=== PATIENT | male | born 1980 | race Caucasian/White ===

== ENCOUNTER 2022-12-08 09:50 | Inpatient (IN) ==
[2022-12-08 10:23] LABS: Basophils # (auto) 0.04 K/uL (0.00-0.20); Basophils % (auto) 0.3 %; Eosinophils # (auto) 0.22 K/uL (0.00-0.50); Eosinophils % (auto) 1.9 %; Hematocrit (blood only) 46.7 % (42.0-52.0); Hemoglobin 16.8 g/dl (14.0-18.0); Immature Granulocytes # (auto) 0.05 K/uL (0.01-0.20); Immature Granulocytes % (auto) 0.4 %; Lymphocytes # (auto) 2.42 K/uL (1.20-3.40); Lymphocytes % (auto) 20.4 %; Mean Corpuscular Hemoglobin 32.1 pg (25.0-34.0); Mean Corpuscular Volume 89.1 fL (80.0-100.0); Mean Platelet Volume 10.6 fL (9.4-12.4); Monocytes # (auto) 0.59 K/uL (0.11-0.59); Neutrophils # (auto) 8.52 K/uL (1.40-6.50); Platelet Count 299 K/uL (130-400); RDW Coefficient of Variation 12.5 % (11.5-14.5); RDW Standard Deviation 41.1 fL (36.4-46.3); Red Blood Count 5.24 M/uL (4.70-6.10); White Blood Count 11.84 K/ul (4.8-10.8)
[2022-12-08 10:39] LABS: Albumin Globulin Ratio 1.5 (0.9-2); Albumin Level 4.7 gm/dl (3.4-5.0); BUN Creatinine Ratio 17.1 (10-20); Bilirubin,Total 0.7 mg/dl (0.2-1.0); Calcium 9.3 mg/dl (8.6-10.3); Creatinine Clr Calc Pharmacy 150.2 ml/min; Est GFR (African American) 128.2 ml/min; Est GFR (Non-African American) 110.6 ml/min; Globulin 3.1 gm/dl (2.5-4.0); Total Protein 7.8 gm/dl (6.0-8.3)
[2022-12-08] MEDS ORDERED: FAMOTIDINE 20MG IV PUSH 20 MG/5 ML SYR IV STA (10:48)
[2022-12-08] MEDS ORDERED: ONDANSETRON INJ 2 MG/ML 2 ML VIAL IV STA (10:48)
[2022-12-08] MEDS ORDERED: fentaNYL citrate PF 100 MCG/2 ML VIAL IV STA ×2 (10:48→13:45)
--- NOTE | 2022-12-08 10:52 | Emergency Department Note ---
History of Present Illness General Chief complaint: Abdominal Pain Stated complaint: ABDOMINAL PAIN, Time Seen by Provider: 12/08/22 09:54 History of Present Illness Maximum Pain Intensity: 9 42-year-old male presents emergency department with an onset of midepigastric abdominal pain and nausea that started a few days ago. Patient's had a prior history approximately a year and a half ago and had pancreatitis at that time. Patient also was told that in the past he had gallstones. Patient states the pain is moderate located in the midepigastrium there is no radiation of the pain. There are no other mitigating or alleviating factors. Patient denies any fever. Home Medications Medication Instructions Recorded Confirmed Type acetaminophen 300 mg-codeine 30 mg 1 tab PO BID PRN Pain 12/08/22 12/08/22 Histo ry tablet fluticasone 100 mcg-salmeterol 50 1 inh inhalation BID 12/08/22 12/08/22 History mcg/dose blistr powdr for inhalation (Wixela Inhub) Allergies Allergy/AdvReac Type Severity Reaction Status Date / Time No Known Allergies Allergy Unverified 12/08/22 11:41 Past Med/Surg History Social History Smoking Status: Former smoker Feels Safe at Home: Yes Immunizations: Past medical history includes pancreatitis Review of Systems A total of 10 systems reviewed and were otherwise negative Gastrointestinal: + abdominal pain and + nausea Physical Exam Vital Signs Vital Signs - 24 hr 12/08/22 09:53 12/08/22 11:41 Temperature 36.4 C L Temperature Source Temporal Artery Scan Pulse Rate 86 71 Respiratory Rate 20 Respiratory Effort / Characteristics Non-Labored Spontaneous Respiratory Depth Normal Blood Pressure 140/92 Blood Pressure Mean 108 Pulse Oximetry 97 Oxygen Delivery Method Room Air Sepsis Recent Fever Within 48 Hours No Sepsis New/Unexplained Change in Mental Status No Sepsis Action Taken by Nursing No Action Required GENERAL: Patient is awake alert in no acute distress patient is resting comfortably and showing no signs of anxiety EYES: The conjunctivae are clear. The pupils are round and reactive. EARS, NOSE, MOUTH AND THROAT: The nose is without any evidence of any deformity. Mucous membranes are moist. Tongue is midline. NECK: The neck is nontender and supple. RESPIRATORY: Normal respiratory effort is noted there is no evidence of wheezing rhonchi or rales CARDIOVASCULAR: Regular rate and rhythm noted there no murmurs rubs or gallops normal S1 normal S2. GASTROINTESTINAL: The abdomen is soft. Abdomen is tender in the midepigastrium BACK: No midline tenderness or or step-off noted range of motion in flexion extension as well as rotation no signs of muscle spasm noted MUSCULOSKELETAL/EXTREMITIES: There is no evidence of gross deformity full range of motion is noted in the hips and shoulders. SKIN: There is no obvious evidence of any rash. There are no petechiae, pallor or cyanosis noted. NEUROLOGIC: Patient is awake alert and oriented x3 strength is symmetric Course Reevaluation(s) Reevaluation #1: Patient continues to complain of pain in the midepigastrium despite IV fluids Zofran and fentanyl Time: 14:01 Consultations Consultation #1: [facility] Time: 14: Administered Medications Discontinued Medications Fentanyl Citrate (Fentanyl Citrate Pf 100 Mcg/2 Ml Vial) 50 mcg IV NOW STA Stop: 12/08/22 10:49 Last Admin: 12/08/22 11:35 Dose: 50 mcg Documented By: WILTON Famotidine (Pepcid 20mg Iv Push) 20 mg in 5 mls @ 2.5 mls/min IV NOW STA Stop: 12/08/22 10:49 Last Admin: 12/08/22 11:35 Dose: 2.5 mls/min Documented By: WILTON Ioversol (Optiray 320 100ml) 90 ml IV ONCE ONE Stop: 12/08/22 12:55 Last Admin: 12/08/22 12:54 Dose: 90 ml Documented By: DAPHNE Ondansetron HCl (Ondansetron Inj 2 Mg/Ml 2 Ml Vial) 4 mg IV NOW STA Stop: 12/08/22 10:49 Last Admin: 12/08/22 11:35 Dose: 4 mg Documented By: WILTON Medical Decision Making Medical Records Attestation: I reviewed the patient's medical records. Home Medications Current Medication List: was personally reviewed by me Laboratory Data Attestation: I reviewed the patient's lab results. Labs interpreted by me elevated lipase consistent with pancreatitis 12/08/22 09:58 12/08/22 09:58 Lab Results 12/08/22 12/08/22 12/08/22 Range/Units 09:58 09:58 09:58 WBC 11.84 H (4.8-10.8) K/ul RBC 5.24 (4.70-6.10) M/uL Hgb 16.8 (14.0-18.0) g/dl Hct 46.7 (42.0-52.0) % MCV 89.1 (80.0-100.0) fL MCH 32.1 (25.0-34.0) pg MCHC 36.0 (32.0-36.0) g/dL RDW Std Deviation 41.1 (36.4-46.3) fL RDW Coeff of Chuck 12.5 (11.5-14.5) % Plt Count 299 (130-400) K/uL MPV 10.6 (9.4-12.4) fL Immature Gran % (Auto) 0.4 % Neut % (Auto) 72.0 % Lymph % (Auto) 20.4 % [place] % (Auto) 5.0 % Eos % (Auto) 1.9 % Baso % (Auto) 0.3 % Neut # (Auto) 8.52 H (1.40-6.50) K/uL Lymph # (Auto) 2.42 (1.20-3.40) K/uL [place] # (Auto) 0.59 (0.11-0.59) K/uL Eos # (Auto) 0.22 (0.00-0.50) K/uL Baso # (Auto) 0.04 (0.00-0.20) K/uL Immature Gran # (Auto) 0.05 (0.01-0.20) K/uL Sodium 139 (136-145) mmol/L Potassium 4.0 (3.5-5.1) mmol/L Chloride 108 H (98-107) mmol/L Carbon Dioxide 24 (21-32) mmol/L Anion Gap 7 (3-11) BUN 14 (6-23) mg/dl Creatinine 0.82 (0.6-1.4) mg/dl Est Cr Clr Drug Dosing 150.2 ml/min Est GFR ( Amer) 128.2 ml/min Est GFR (Non-Af Amer) 110.6 ml/min BUN/Creatinine Ratio 17.1 (10-20) Glucose 107 H (70-99(Fasting)) mg/dl Calcium 9.3 (8.6-10.3) mg/dl Total Bilirubin 0.7 (0.2-1.0) mg/dl AST 21 (13-39) U/L ALT 40 (7-52) U/L Alkaline Phosphatase 75 (34-104) U/L Total Protein 7.8 (6.0-8.3) gm/dl Albumin 4.7 (3.4-5.0) gm/dl Globulin 3.1 (2.5-4.0) gm/dl Albumin/Globulin Ratio 1.5 (0.9-2) Lipase 283 H (11-82) U/L Urine Color Dark Yellow Urine Appearance Clear (Clear) Urine pH 5.5 (4.5-7.5) Ur Specific [place] 1.028 (1.000-1.030) Urine Protein Negative (Negative) Urine Glucose (UA) Negative (Negative) Urine Ketones Trace H (Negative) Urine Blood Negative (Negative) Urine Nitrite Negative (Negative) Urine Bilirubin Negative (Negative) Urine Urobilinogen Negative (Negative) Ur Leukocyte Esterase Negative (Negative) Imaging Data Attestation: I personally reviewed and interpreted this imaging study as foll ows: My Impression: CT abdomen pelvis per my interpretation is negative for bowel obstruction Radiologist's Impression: Abdomen/Pelvis CT 12/08/22 10:07 CT abd pelvis IV con only CLINICAL HISTORY: abd pain TECHNIQUE: Helical axial images of the abdomen and pelvis were obtained and displayed. Automated dose lowering techniques and/or adjustment according to patient size were utilized for this exam. This exam was performed with intravenous contrast. CT DOSE: 1594.48 mGy.cm COMPARISON: Comparison is made to CT abdomen pelvis 04/24/2020 FINDINGS: Lower chest: No acute abnormality. Liver: Unremarkable. No focal lesions are seen. Gallbladder and biliary tree: No calcified gallstones. Normal caliber wall. No intra- or extrahepatic biliary ductal dilation. Pancreas: Unremarkable, no focal lesions. Spleen: Unremarkable. Adrenals: Unremarkable. Kidneys and ureters: Unremarkable. Bladder: Limited evaluation due to underdistention. Reproductive organs: Unremarkable. Bowel: Unremarkable. Lymph nodes Retroperitoneal: Unremarkable. Pelvic: Unremarkable. Mesenteric: Unremarkable. Peritoneum: Normal. Vessels: Unremarkable. Abdominal wall: Left fat containing inguinal hernia. Bones: Degenerative changes in the visualized spine. IMPRESSION: No acute abnormalities. ACT 112: Negative or not required by law. Electronically signed by: Antonio Harley M.D. 12/08/2022 1:25 PM ECG Data Attestation: I personally reviewed and interpreted this ECG as follows: Additional Comments: EKG interpreted by me normal sinus rhythm rate of 74 normal intervals normal axis no obvious ST segment elevation or depression Telemetry was ordered by me interpreted as normal sinus rhythm rate of 74 MDM Narrative Medical decision making differential diagnosis includes gastritis, gastroenteritis, colitis, pancreatitis, cholecystitis, metabolic derangement, dehydration, electrolyte abnormality Plan is to check labs, EKG, CT, give IV pain medicine IV nausea medicine IV Pepcid External medical records were reviewed by me Patient CT is negative patient has an elevated lipase, patient continues to complain of pain. Patient will be admitted for IV analgesia for pancreatitis Impression & Plan Pancreatitis Discharge Plan Visit Data Chief Complaint: Abdominal Pain Stated Complaint: ABDOMINAL PAIN, ED Provider: Tr Westfall Discharge Problem: Pancreatitis Patient Disposition: Admitted As Inpatient Forms Stand Alone Forms: My [facility] Prescriptions Prescriptions: No Action acetaminophen-codeine [Tylenol-Codeine #3] 300-30 mg Tablet 1 tab PO BID PRN (Reason: Pain) fluticasone propion-salmeterol [Wixela Inhub] 100-50 mcg/dose Blister With Device 1 inh INHALATION BID Rx Instructions: unknown dose Referrals Referrals: [facility] [Primary Care Provider] -
[2022-12-08 12:12] LABS: Appearance Urine Clear (Clear); Bilirubin Urine Negative (Negative); Blood Urine Negative (Negative); Color Urine Dark Yellow; Glucose Urine UA Negative (Negative); Ketones Urine Trace (Negative); Leukocyte Esterase Urine Negative (Negative); Nitrite Urine Negative (Negative); Protein Urine Negative (Negative); Specific Gravity Urine 1.028 (1.000-1.030); Urobilinogen Urine Negative (Negative); pH Urine 5.5 (4.5-7.5)
[2022-12-08] MEDS ORDERED: OPTIRAY 320 100ml IV ONE (12:54)
--- NOTE | 2022-12-08 13:27 | CT Scan Report ---
CT abd pelvis IV con only CLINICAL HISTORY: abd pain TECHNIQUE: Helical axial images of the abdomen and pelvis were obtained and displayed. Automated dose lowering techniques and/or adjustment according to patient size were utilized for this exam. This e xam was performed with intravenous contrast. CT DOSE: 1594.48 mGy.cm COMPARISON: Comparison is made to CT abdomen pelvis 04/24/2020 FINDINGS: Lower chest: No acute abnormality. Liver: Unremarkable. No focal lesions are seen. Gallbladder and biliary tree: No calcified gallstones. Normal caliber wall. No intra- or extrahepatic biliary ductal dilation. Pancreas: Unremarkable, no focal lesions. Spleen: Unremarkable. Adrenals: Unremarkable. Kidneys and ureters: Unremarkable. Bladder: Limited evaluation due to underdistention. Reproductive organs: Unremarkable. Bowel: Unremarkable. Lymph nodes Retroperitoneal: Unremarkable. Pelvic: Unremarkable. Mesenteric: Unremarkable. Peritoneum: Normal. Vessels: Unremarkable. Abdominal wall: Left fat containing inguinal hernia. Bones: Degenerative changes in the visualized spine. IMPRESSION: No acute abnormalities. ACT 112: Negative or not required by law. Electronically signed by: Antonio Harley M.D. 12/08/2022 1:25 PM
[2022-12-08] MEDS ORDERED: ACETAMINOPHEN 1,000 MG/100 ML VIAL IV STA (14:47)
--- NOTE | 2022-12-08 14:52 | History & Physical Report ---
Date of Service December 08, 2022 Assessment & Plan (1) Pancreatitis: (2) Abdominal pain: (3) Obesity (BMI 35.0-39.9 without comorbidity): Plan Acute pancreatitis Abdominal pain Admit to medical We will permit bowel rest today with likely advancement of diet in a.m. if symptoms resolve IV fluid with LR 200 cc/h IV APAP for mild pain, IV morphine for severe pain IV Pepcid daily --CT a/p: unremarkable Pt had EGD as OP 08/2020 with [facility] that was negative and bx negative as well for h pylori pt states he has been dealing with this since 2006 off/on encourage to abstain from alcohol (even though consumption isn't much), try to follow low fat diet when able to have diet and abstain from Monster energy drinks which he consumes 2-3 a day ? pt has gallbladder dysfunction despite no evidence of cholelithiasis would recommend General Surgery eval and HIDA scan as OP when sx resolved will obtain lipase, CBC, CMP, lipid panel and a1c in a.m. Elevated blood pressure may be situational in setting of pain continue to monitor Obesity BMI 37.6 encourage diet/lifestyle modifications when able DVT ppx: SQ Lovenox FULL CODE PCP: [facility] Dispo: admit to medical, likely discharge tomorrow if sx resolve Pt was seen and examined in collaboration with Dr. Gutierrez, please see addendum A total of 60 was spent coordinating, documenting, and providing care for this patient excluding time spent in the performance of separately billed services. This included personally viewing all current laboratories and imaging studies, medication reconciliation, outpatient chart review, and discussion with special ists. History of Present Illness Chief Complaint: Abdominal pain x 3 days. Primary Care Provider: [facility] This is a 42-year-old male who is otherwise healthy who presents to ED secondary to abdominal pain x3 days. is at bedside. Pain is located in the epigastrium he describes it as a, "deep," pain that does not radiate. Pain is constant and is progressively gotten worse over the last 3 days. He denies any associated nausea or vomiting. He states his symptoms initially started out where it feels like, "I ate too much and feels really full." He then states it feels like he is bloated and then turned into a, "deep ache." He states he has been dealing with this since 2006 and will rewrites that every couple years. He has history of pancreatitis in the past requiring hospitalization. He also admits to having endoscopy in 2014 as well as again in 2020. The most recent one was done with [facility]. This was unremarkable. He states his provider [facility] told him if this occurs again he may need to consider getting his gallbladder out. He denies any fever, chills, sweats, lightheadedness, dizziness, chest pain, shortness of breath, hemoptysis, hematemesis, diarrhea, constipation, melena or hematochezia. His bowel habits have been normal. He has never had a colonoscopy. His last bowel movement was this morning. His appetite is otherwise been normal and he has been eating and drinking as normal. He states he follows a relatively unhealthy diet where he has a diet high in fatty foods. With that being said he is really unable to pinpoint anything that flares his symptoms. He does drink alcohol but only on an occasional basis, maybe 1-2 drinks a week. He was a previous smoker 14 years ago. He does smoke medical marijuana nightly, last use last evening. In ED patient was found to frances ve a mildly elevated lipase level and a completely unremarkable CT scan of abdomen pelvis. He otherwise remained afebrile and vital signs were within normal limits except mildly elevated blood pressure. He did receive IV medications for pain in ED and currently pain is a 2 out of 10. at bedside also elicits hx. Allergies Allergy/AdvReac Type Severity Reaction Status Date / Time No Known Allergies Allergy Unverified 12/08/22 11:41 Home Medications Medication Instructions Recorded Confirmed Type acetaminophen 300 mg-codeine 30 mg 1 tab PO BID PRN Pain 12/08/22 12/08/22 History tablet fluticasone 100 mcg-salmeterol 50 1 inh inhalation BID 12/08/22 12/08/22 History mcg/dose blistr powdr for inhalation (Wixela Inhub) Past Med/Surg History Medical History (Updated 12/08/22 @ 15:13 by Faviola Tinoco PA-C) Asthma Surgical History History of dental surgery Hx of appendectomy Family History Mother Cancer Dysfunctional gallbladder Aunt Breast cancer Denies family history of Diabetes Coronary heart disease Social History Smoking Status: Former smoker Tobacco Type: Cigarettes Smoking End Date: 14 yrs quit in 2011; Hx Alcohol Use: Yes Alcohol type: wine Alcohol Intake Frequency: 2-4 x/Month Hx Substance Use: Yes Prescribed Medications: Marijuana marital status: Current Living Situation: Spouse Feels Safe at Home: Yes Review of Systems Review of Systems: All systems reviewed & are unremarkable except as noted in HPI & below Physical Exam Physical Exam: Constitutional: WD/WN, vitals as above, NAD, sitting up in bed, pleasant, conversing easily Head: Normocephalic, Atraumatic Eyes: PERRL, conjunctivae normal, anicteric sclerae ENMT: external ear and nose normal, oropharynx normal Neck: trachea midline, no thyromegaly normal visual inspection Respiratory: normal respiratory effort, lungs clear to auscultation, no wheeze, rales, rhonchi. Normal insp/exp effort, no accessory muscle use Cardiovascular: RRR, no murmur, no edema Vessels: no JVD or carotid bruit Chest: normal inspection of chest Abdomen: normal bowel sounds, soft, nontender, no hepatosplenomegaly Musculoskeletal: no cyanosis or clubbing, extremities motor strength 5/5 Skin: no rashes, warm and dry normal turgor Neurologic: PERRL, EOMI, accommodation nl, no face palsy, no dysarthria CN's II-XI intact bilaterally and moves all extremities Psychiatric: A+Ox3, euthymic affect Lymphatic: no cervical or axillary lymphadenopathy : deferred Results & Data Results & Data Vital Signs (Past 12 Hours) Vital Signs Temp Pulse Pulse Resp BP BP Pulse Ox 12/08/22 14:13 58 L 15 147/93 H 100 12/08/22 11:41 71 12/08/22 09:53 36.4 C L 86 20 140/92 97 O2 Del Method 12/08/22 14:13 Room Air 12/08/22 11:41 12/08/22 09:53 Room Air Diagnostic Findings Abdomen/Pelvis CT 12/08/22 10:07 CT abd pelvis IV con only CLINICAL HISTORY: abd pain TECHNIQUE: Helical axial images of the abdomen and pelvis were obtained and displayed. Automated dose lowering techniques and/or adjustment according to patient size were utilized for this exam. This exam was performed with intravenous contrast. CT DOSE: 1594.48 mGy.cm COMPARISON: Comparison is made to CT abdomen pelvis 04/24/2020 FINDINGS: Lower chest: No acute abnormality. Liver: Unremarkable. No focal lesions are seen. Gallbladder and biliary tree: No calcified gallstones. Normal caliber wall. No intra- or extrahepatic biliary ductal dilation. Pancreas: Unremarkable, no focal lesions. Spleen: Unremarkable. Adrenals: Unremarkable. Kidneys and ureters: Unremarkable. Bladder: Limited evaluation due to underdistention. Reproductive organs: Unremarkable. Bowel: Unremarkable. Lymph nodes Retroperitoneal: Unremarkable. Pelvic: Unremarkable. Mesenteric: Unremarkable. Peritoneum: Normal. Vessels: Unremarkable. Abdominal wall: Left fat containing inguinal hernia. Bones: Degenerative changes in the visualized spine. IMPRESSION: No acute abnormalities. ACT 112: Negative or not required by law. Electronically signed by: Antonio Harley M.D. 12/08/2022 1:25 PM Medications Administered Medication List Discontinued Medications Fentanyl Citrate (Fentanyl Citrate Pf 100 Mcg/2 Ml Vial) 50 mcg IV NOW STA Stop: 12/08/22 10:49 Last Admin: 12/08/22 11:35 Dose: 50 mcg Documented By: WILTON Fentanyl Citrate (Fentanyl Citrate Pf 100 Mcg/2 Ml Vial) 50 mcg IV NOW STA Stop: 12/08/22 13:46 Last Admin: 12/08/22 14:10 Dose: 50 mcg Documented By: MARIA ISABEL Famotidine (Pepcid 20mg Iv Push) 20 mg in 5 mls @ 2.5 mls/min IV NOW STA Stop: 12/08/22 10:49 Last Admin: 12/08/22 11:35 Dose: 2.5 mls/min Documented By: WILTON Ioversol (Optiray 320 100ml) 90 ml IV ONCE ONE Stop: 12/08/22 12:55 Last Admin: 12/08/22 12:54 Dose: 90 ml Documented By: DAPHNE Ondansetron HCl (Ondansetron Inj 2 Mg/Ml 2 Ml Vial) 4 mg IV NOW STA Stop: 12/08/22 10:49 Last Admin: 12/08/22 11:35 Dose: 4 mg Documented By: HS ECG Rate (beats per minute): 74 Rhythm: normal sinus Additional Comments: independently interpreted, no qtc prolongation, no st t wave abn COVID-19 Results Results COVID-19 Adm Lab Results: RBC 5.24 M/uL (4.70-6.10) 12/08/22 WBC 11.84 K/ul (4.8-10.8) H 12/08/22 Hgb 16.8 g/dl (14.0-18.0) 12/08/22 Hct 46.7 % (42.0-52.0) 12/08/22 Plt Count 299 K/uL (130-400) 12/08/22 Neutrophils (%) (Auto) 72.0 % 12/08/22 Lymphocytes (%) (Auto) 20.4 % 12/08/22 Monocytes # (Auto) 0.59 K/uL (0.11-0.59) 12/08/22 Eosinophils # (Auto) 0.22 K/uL (0.00-0.50) 12/08/22 Immature Granulocyte % (Auto) 0.4 % 12/08/22 Neutrophils # (Auto) 8.52 K/uL (1.40-6.50) H 12/08/22 Lymphocytes # (Auto) 2.42 K/uL (1.20-3.40) 12/08/22 Monocytes # (Auto) 0.59 K/uL (0.11-0.59) 12/08/22 Eosinophils # (Auto) 0.22 K/uL (0.00-0.50) 12/08/22 Basophils # (Auto) 0.04 K/uL (0.00-0.20) 12/08/22 Immature Granulocyte # (Auto) 0.05 K/uL (0.01-0.20) 3 Na 139 mmol/L (136-145) 12/08/22 K 4.0 mmol/L (3.5-5.1) 12/08/22 Cl 108 mmol/L (98-107) H 12/08/22 CO2 24 mmol/L (21-32) 12/08/22 Anion Gap 7 (3-11) 12/08/22 BUN 14 mg/dl (6-23) 12/08/22 Creatinine 0.82 mg/dl (0.6-1.4) 12/08/22 BUN/Creatinine Ratio 17.1 (10-20) 12/08/22 Glucose Level 107 mg/dl (70-99(Fasting)) H 12/08/22 Ca 9.3 mg/dl (8.6-10.3) 12/08/22 Total Bilirubin 0.7 mg/dl (0.2-1.0) 12/08/22 AST/SGOT 21 U/L (13-39) 12/08/22 ALT/SGPT 40 U/L (7-52) 12/08/22 Alkaline Phosphatase 75 U/L (34-104) 12/08/22 Total Protein 7.8 gm/dl (6.0-8.3) 12/08/22 Albumin 4.7 gm/dl (3.4-5.0) 12/08/22 Globulin 3.1 gm/dl (2.5-4.0) 12/08/22 Albumin/Globulin Ratio 1.5 (0.9-2) 12/08/22 Code Status & VTE Plan Code Status FULL CODE VTE Prophylaxis Plan VTE Prophylaxis will be ordered: Yes Supervising Physician Co-Signing Physician Notes Pt seen and examined by me, care coordinated with Sari Tinoco PA-C, pls refer to her note above for further detail. Pt is a 42 yo M who presents w/ abdominal pain x3 days. Pain is located in the epigastrium and does not radiate. Pain is constant and is progressively gotten worse over the last 3 days. He denies any associated nausea or vomiting. Denies any blood in the stool or any diarrhea. Also denies any fever or chills. Denies chest pain or shortness of breath. He states he has been dealing with this since 2006. He has history of pancreatitis in the past requiring hospitalization. He also admits to having endoscopy in 2014 as well as again in 2020. The most recent one was done with [facility]. This was unremarkable. He states his provider [facility] the [facility] told him if this occurs again he may need to consider getting his gallbladder out. He has never had a colonoscopy. In ED patient was found to have a mildly elevated lipase level and a unr emarkable CT scan of abdomen pelvis per radiology read. IV pain medications were provided in the ED. Will start pt on IV LR, NPO, pain control, iv pepcid and will discuss further w/ GI. [place]. VO (2) Abdominal pain Abdominal location: unspecified location Qualified Code(s): R10.9 - Unspecified abdominal pain
[2022-12-08] MEDS ORDERED: LACTATED RINGER'S 1,000 ML IV SCH (15:00)
[2022-12-08] MEDS ORDERED: MoRPHine SULFATE 4 MG/ML 1 ML CARP\\VIAL IV PRN (15:18)
[2022-12-08] MEDS ORDERED: MoRPHine SULFATE 2 MG/ML CARP IV PRN (15:18)
[2022-12-08] MEDS ORDERED: ACETAMINOPHEN 1,000 MG/100 ML VIAL IV PRN (15:18)
[2022-12-08] MEDS ORDERED: HYDROmorphone INJ 0.5 MG/0.5 ML SYR IV PRN (15:31)
[2022-12-08] MEDS: LACTATED RINGER'S 1,000 ML IV SCH ×2 (15:35→20:45)
[2022-12-08] MEDS: ONDANSETRON INJ 2 MG/ML 2 ML VIAL IV PRN (18:58)
[2022-12-08] MEDS: ENOXAPARIN INJ 40 MG/0.4 ML SYR SQ SCH (21:04)
[2022-12-09] MEDS: LACTATED RINGER'S 1,000 ML IV SCH ×5 (01:07→20:37)
[2022-12-09] MEDS: HYDROmorphone INJ 0.5 MG/0.5 ML SYR IV PRN ×5 (01:09→21:32)
[2022-12-09 07:52] LABS: Basophils # (auto) 0.04 K/uL (0.00-0.20); Basophils % (auto) 0.4 %; Eosinophils # (auto) 0.27 K/uL (0.00-0.50); Eosinophils % (auto) 2.5 %; Hematocrit (blood only) 40.8 % (42.0-52.0); Hemoglobin 14.4 g/dl (14.0-18.0); Immature Granulocytes # (auto) 0.03 K/uL (0.01-0.20); Immature Granulocytes % (auto) 0.3 %; Lymphocytes # (auto) 2.68 K/uL (1.20-3.40); Lymphocytes % (auto) 24.4 %; Mean Corpuscular Hemoglobin 32.4 pg (25.0-34.0); Mean Corpuscular Hgb Conc 35.3 g/dL (32.0-36.0); Mean Corpuscular Volume 91.7 fL (80.0-100.0); Mean Platelet Volume 10.8 fL (9.4-12.4); Monocytes # (auto) 0.71 K/uL (0.11-0.59); Monocytes % (auto) 6.5 %; Neutrophils # (auto) 7.27 K/uL (1.40-6.50); Neutrophils % (auto) 65.9 %; Platelet Count 244 K/uL (130-400); RDW Coefficient of Variation 12.5 % (11.5-14.5); RDW Standard Deviation 42.2 fL (36.4-46.3); Red Blood Count 4.45 M/uL (4.70-6.10)
[2022-12-09 08:03] LABS: Albumin Globulin Ratio 1.4 (0.9-2); Albumin Level 3.7 gm/dl (3.4-5.0); BUN Creatinine Ratio 11.5 (10-20); Bilirubin,Total 0.8 mg/dl (0.2-1.0); Calcium 8.4 mg/dl (8.6-10.3); Chol HDL Ratio 5.3 (0-5); Creatinine Clr Calc Pharmacy 157.9 ml/min; Est GFR (African American) 130.9 ml/min; Est GFR (Non-African American) 112.9 ml/min; Globulin 2.7 gm/dl (2.5-4.0); Magnesium 1.9 mg/dl (1.7-2.4); Potassium 3.7 mmol/L (3.5-5.1); Total Protein 6.4 gm/dl (6.0-8.3)
[2022-12-09 08:17] LABS: Estimated Average Glucose 105 mg/dl; Hemoglobin A1C 5.3 % (4.5-5.6)
[2022-12-09] MEDS ORDERED: FAMOTIDINE 20 MG in SYRINGE 3 ML IV SCH (09:00)
[2022-12-09] MEDS: ONDANSETRON INJ 2 MG/ML 2 ML VIAL IV PRN (10:40)
--- NOTE | 2022-12-09 13:54 | Hospitalist Progress Note ---
Date of Service December 09, 2022 Assessment & Plan (1) Pancreatitis: (2) Abdominal pain: (3) Obesity (BMI 35.0-39.9 without comorbidity): Plan Acute pancreatitis Abdominal pain Admit to medical Discussed with GI who recommends advance to clear liquid IV fluid with LR 200 cc/h IV APAP for mild pain, IV dilaudid for severe pain GI placed on daily PPI --CT a/p: unremarkable Pt had EGD as OP 08/2020 with [facility] that was negative and bx negative as well for h pylori pt states he has been dealing with this since 2006 off/on encourage to abstain from alcohol (even though consumption isn't much), try to follow low fat diet when able to have diet and abstain from Monster energy drinks which he consumes 2-3 a day ? pt has gallbladder dysfunction despite no evidence of cholelithiasis would recommend General Surgery eval and HIDA scan as OP when sx resolved will obtain lipase, CBC, BMP, mag in a.m. CBC, CMP, Lipase reviewed today, lipase improving Elevated blood pressure may be situational in setting of pain improved Obesity BMI 37.6 encourage diet/lifestyle modifications when able DVT ppx: SQ Lovenox FULL CODE PCP: [place] Dispo: admit to medical, likely discharge in next 1-2 days Pt was seen and examined in collaboration with Dr. Salinas, please see addendum A total of 60 was spent coordinating, documenting, and providing care for this patient excluding time spent in the performance of separately billed services. This included personally viewing all current laboratories and imaging studies, medication reconciliation, outpatient chart review, and discussion with specialists. Admission and Anticipated Discharge Date Admission Date: December 08, 2022 Supervising Physician Co-Signing Physician Notes Patient is seen and examined at bedside. States having epigastric abdominal pain, less when compared to yesterday. Reports nausea but no vomiting. No other complaints. On exam patient is well-built and nourished, no apparent distress, normocephalic atraumatic, EOMI, normal breath sounds, clear to auscultation, S1-S2, no murmur, no pedal edema, abdomen soft, mild epigastric tenderness, normal bowel sounds, alert, awake, oriented, grossly no focal deficits. Patient is admitted for management of acute pancreatitis. Unclear etiology. Continue IV fluids, bowel rest. Clear liquid diet for now. LFTs, lipid panel within normal limits. Appreciate GI input. Counseled on alcohol abstinence. I personally reviewed the record. Patient is interviewed and examined at bedside. Patient's care is coordinated with Faviola Tinoco PA-C. Please refer to the documentation above for details of patient's presentation and for discussion of other issues. Subjective Patient was seen and examined in room 354. Follow-up acute pancreatitis. He continues to have epigastric abdominal pain and is relieved with analgesia. He remains n.p.o. He denies fever, chills, sweats, lightheadedness, dizziness, chest pain, shortness breath, nausea, vomitting. Awaiting GI eval. Review of Systems Review of Systems: All systems reviewed & are unremarkable except as noted in HPI & below Physical Exam Physical Exam: Constitutional: WD/WN, vitals as above, NAD, sitting up in bed, pleasant, conversing easily Head: Normocephalic, Atraumatic Eyes: PERRL, conjunctivae normal, anicteric sclerae ENMT: external ear and nose normal, oropharynx normal Neck: trachea midline, no thyromegaly normal visual inspection Respiratory: normal respiratory effort, lungs clear to auscultation, no wheeze, rales, rhonchi. Normal insp/exp effort, no accessory muscle use Cardiovascular: RRR, no murmur, no edema Vessels: no JVD or carotid bruit Chest: normal inspection of chest Abdomen: normal bowel sounds, soft, nontender to light palpation, tender in epigastrium to deep palpation, no hepatosplenomegaly Musculoskeletal: no cyanosis or clubbing, extremities motor strength 5/5 Skin: no rashes, warm and dry normal turgor Neurologic: PERRL, EOMI, accommodation nl, no face palsy, no dysarthria CN's II-XI intact bilaterally and moves all extremities Psychiatric: A+Ox3, euthymic affect Lymphatic: no cervical or axillary lymphadenopathy : deferred Results & Data Results & Data Vital Signs (Past 12 Hours) Vital Signs Temp Pulse Resp BP Pulse Ox O2 Del Method 12/09/22 12:17 36.7 C 12/09/22 07:29 36.7 C 49 L 16 114/75 96 Room Air 12/09/22 07:27 36.7 C 49 L 16 114/75 96 Room Air Laboratory Results Short CBC 12/09/22 Range/Units 07:14 WBC 11.00 H (4.8-10.8) K/ul Hgb 14.4 (14.0-18.0) g/dl Hct 40.8 L (42.0-52.0) % Plt Count 244 (130-400) K/uL BMP 12/09/22 07:14 Sodium 139 Potassium 3.7 Chloride 105 Carbon Dioxide 29 BUN 9 Creatinine 0.78 Glucose 93 Calcium 8.4 L Liver Function 12/09/22 Range/Units 07:14 Total Bilirubin 0.8 (0.2-1.0) mg/dl AST 16 (13-39) U/L ALT 28 (7-52) U/L Alkaline Phosphatase 60 (34-104) U/L Albumin 3.7 (3.4-5.0) gm/dl Medications Administered Current Inpatient Medications Acetaminophen (Acetaminophen 325 Mg Tab) 650 mg PO Q4H PRN PRN Reason: Pain or Fever Stop: 01/07/23 15:17 Enoxaparin Sodium (Enoxaparin Inj 40 Mg/0.4 Ml Syr) 40 mg SQ Q24H MARLENE Stop: 01/07/23 21:59 Last Admin: 12/08/22 21:04 Dose: 40 mg Hydromorphone HCl (Hydromorphone Inj 0.5 Mg/0.5 Ml Syr) 1 mg IV Q4H PRN PRN Reason: Pain (6,7,8,9,10) Stop: 12/22/22 15:30 Last Admin: 12/08/22 17:00 Dose: 1 mg Hydromorphone HCl (Hydromorphone Inj 0.5 Mg/0.5 Ml Syr) 0.5 mg IV Q4 PRN PRN Reason: Pain (1,2,3,4,5) & Pre PT Stop: 12/22/22 15:30 Last Admin: 12/09/22 12:05 Dose: 0.5 mg Lactated Ringer's (Lr) 1,000 mls @ 200 mls/hr IV .Q5H MARLENE Stop: 01/07/23 15:17 Last Admin: 12/09/22 10:31 Dose: 200 mls/hr Acetaminophen (Ofirmev) 1,000 mg in 100 mls @ 400 mls/hr IV Q8H PRN PRN Reason: Mild Pain (Scale 1, 2, 3) Stop: 12/11/22 15:17 Last Infusion: 12/09/22 05:31 Dose: Infused Ondansetron HCl (Ondansetron Inj 2 Mg/Ml 2 Ml Vial) 4 mg IV Q6H PRN PRN Reason: Nausea Stop: 01/07/23 15:17 Last Admin: 12/09/22 10:40 Dose: 4 mg Pantoprazole Sodium (Pantoprazole 40 Mg Tab) [facility] Stop: 01/09/23 08:59 (2) Abdominal pain Abdominal location: unspecified location Qualified Code(s): R10.9 - Unspecified abdominal pain
--- NOTE | 2022-12-09 14:45 | Electrocardiogram Report ---
Test Reason : Blood Pressure : / mmHG Vent. Rate : 074 BPM Atrial Rate : 074 BPM P-R Int : 154 ms QRS Dur : 086 ms QT Int : 384 ms P-R-T Axes : 067 072 042 degrees QTc Int : 426 ms Normal sinus rhythm Normal ECG When compared with ECG of 02-MAY-2020 11:21, Nonspecific T wave abnormality has replaced inverted T waves in Inferior leads Confirmed by Zacarias Samayoa ([id number]) on 12/09/2022 2:44:36 PM Referred By: REFERRED SELF Confirmed By:Nigel Samayoa
--- NOTE | 2022-12-09 15:15 | Gastrointestinal Consultation ---
Date of Consultation December 09, 2022 Assessment & Plan (1) Pancreatitis: Pt is a 42 yo male admitted w pancreatitis. Unclear etiology - still has gallbladder in place but no gallstones noted, TG 113, does consume ETOH but low portions, does use marijuana for anxiety. Last EUS in 2020 wo stones, masses. De nies family hx of pancreatic ca or pancreatitis. - LR IVF support - CL diet; if tolerating may advance to low fat and dc IVF. - Avoid ETOH, marijuana products - [facility] - Symptomatic management otherwise - GI to sign off; pls recall prn Supervising Physician Co-Signing Physician Notes I personally saw and evaluated the patient on 12/09/2022 with ELIZABETH Fairchild and agree with her findings and plan of care. 42 y/o M with history of recurrent idiopathic pancreatitis admitted with abdominal pain and lipase of 283 (normal CT imaging) diagnosed with pancreatitis. He previously had pancreatitis in 2014 and 2020 of unclear etiology. He denies any alcohol use other than 2 glasses of wine monthly, he has no gallstones, is not on any medications known to cause pancreatitis, no family history, and triglycerides are normal. He had an EUS in 2020 that was unremarka ble. He states the OR who he follows with said if this happened again they were going to pursue cholecystectomy. On exam he has no abdominal tenderness and is very comfortable. He does admit to using marijuana. He likely has recurrent idiopathic pancreatitis. Would recommend IV LR and when patient is able to eat ok to discontinue IV fluids. Recommend a low fat diet. Avoid alcohol and marijuana. Pain management per primary team. GI will sign off but please call back with questions. Cami Crespo, DO Gastroenterology and Hepatology History of Present Illness Reason for Consultation: Pancreatitis Requesting Physician: Dr. Rishabh Salinas Attending Physician: Dr. Cami Crespo History of Present Illness Pt is a 42 yo male who presented with upper abd pain x 3 days associated w nausea, wo vomiting. Noted to have elevated lipase >200, LFTs normal w mild leukocytosis, though CT abd/pelvis w contrast unremarkable. He is admitted for pancreatitis and currently receiving LR IVF support. He states he had hx of pancreatitis in 2014, and 2020. He had EGD/EUS in [address] Zacarias Alberto which showed no signs of pancreas mass, gallstones. He had ETOh beverages 2 days prior, and uses marijuana for anxiety. Denies new meds/herbal supplements. Denies tobacco products. TG 113. No family hx of pancreas ca or pancreatitis. He is a and was informed by OR provider that if he has another pancreatitis episode, he'll be referred to Surgery for possible cholecystectomy. Allergies Allergy/AdvReac Type Severity Reaction Status Date / Time No Known Allergies Allergy Unverified 12/08/22 11:41 Home Medications Medication Instructions Recorded Confirmed Type acetaminophen 300 mg-codeine 30 mg 1 tab PO BID PRN Pain 12/08/22 12/08/22 History tablet fluticasone 100 mcg-salmeterol 50 1 inh inhalation BID 12/08/22 12/08/22 History mcg/dose blistr powdr for inhalation (Wixela Inhub) Patient History Medical History Asthma Surgical History History of dental surgery Hx of appendectomy Family History Mother Cancer Dysfunctional gallbladder Aunt Breast cancer Denies family history of Diabetes Coronary heart disease Social History Smoking Status: Never smoker Tobacco Type: Cigarettes Smoking End Date: 14 yrs quit in 2011; Hx Alcohol Use: Yes Alcohol type: beer Alcohol Intake Frequency: 2-4 x/Month Hx Substance Use: No Preferred Language: Cymraes Communication Ability: Effective Spa Host Required: No marital status: Current Living Situation: Spouse Current Living Situation Comment: house w/ stairs Feels Safe at Home: Yes Safety Concerns: Feels Safe At This Time Assistive Devices: None Review of Systems Review of Systems: All systems reviewed & are unremarkable except as noted in HPI & below Physical Exam Constitutional: WD/WN, vitals as above well groomed, cooperative and comfortable Eyes: PERRL, conjunctivae normal, anicteric sclerae ENMT: external ear and nose normal, oropharynx normal Respiratory: normal respiratory effort, lungs clear to auscultation Cardiovascular: RRR, no murmur, no edema Gastrointestinal (Abdomen): Soft, TTP upper abd, BS hypoactive Skin: no rashes, warm and dry no jaundice Psychiatric: A+Ox3, euthymic affect Lymphatic: no lymphedema Results & Data Vital Signs (Past 12 Hours) Vital Signs Temp Pulse Resp BP Pulse Ox O2 Del Method 12/09/22 12:17 36.7 C 12/09/22 07:29 36.7 C 49 L 16 114/75 96 Room Air 12/09/22 07:27 36.7 C 49 L 16 114/75 96 Room Air
[2022-12-09] MEDS: ENOXAPARIN INJ 40 MG/0.4 ML SYR SQ SCH (21:32)
[2022-12-10] MEDS: LACTATED RINGER'S 1,000 ML IV SCH ×5 (01:09→22:40)
[2022-12-10] MEDS: HYDROmorphone INJ 0.5 MG/0.5 ML SYR IV PRN ×4 (01:29→14:18)
[2022-12-10 08:14] LABS: Hematocrit (blood only) 41.3 % (42.0-52.0); Hemoglobin 14.5 g/dl (14.0-18.0); Mean Corpuscular Hemoglobin 32.1 pg (25.0-34.0); Mean Corpuscular Hgb Conc 35.1 g/dL (32.0-36.0); Mean Corpuscular Volume 91.4 fL (80.0-100.0); Mean Platelet Volume 10.7 fL (9.4-12.4); Platelet Count 242 K/uL (130-400); RDW Coefficient of Variation 12.2 % (11.5-14.5); RDW Standard Deviation 40.7 fL (36.4-46.3); Red Blood Count 4.52 M/uL (4.70-6.10)
[2022-12-10] MEDS: PANTOprazole 40 MG TAB PO SCH (08:18)
[2022-12-10 08:33] LABS: BUN Creatinine Ratio 8.5 (10-20); Calcium 8.7 mg/dl (8.6-10.3); Creatinine Clr Calc Pharmacy 150.2 ml/min; Est GFR (African American) 128.2 ml/min; Est GFR (Non-African American) 110.6 ml/min; Magnesium 1.9 mg/dl (1.7-2.4)
--- NOTE | 2022-12-10 15:59 | Hospitalist Progress Note ---
Date of Service December 10, 2022 Assessment & Plan (1) Pancreatitis: (2) Abdominal pain: (3) Obesity (BMI 35.0-39.9 without comorbidity): Plan Acute pancreatitis Abdominal pain Admit to medical Discussed with GI who recommends advance to clear liquid IV fluid with LR 200 cc/h Once tolerating clears, can advance to low fat and dc fluids IV APAP for mild pain, IV Dilaudid for severe pain GI placed on daily PPI --CT a/p: unremarkable Pt had EGD as OP 08/2020 with [facility] that was negative and bx negative as well for h pylori pt states he has been dealing with this since 2006 off/on encourage to abstain from alcohol (even though consumption isn't much), try to follow low fat diet when able to have diet and abstain from Monster energy drinks, of which he consumes 2-3 a day Pt has gallbladder dysfunction despite no evidence of cholelithiasis Per GI, [facility] to eval for [facility]ectomy Elevated blood pressure -> resolved likely situational in setting of pain Obesity BMI 37.6 encourage diet/lifestyle modifications when able DVT ppx: SQ Lovenox FULL CODE PCP: [place] Dispo: admit to medical, likely discharge in next 1-2 days Admission and Anticipated Discharge Date Admission Date: December 08, 2022 Supervising Physician Co-Signing Physician Notes Patient is seen and examined at bedside. Abdominal pain variable and patient still requiring IV pain medications. Denies any intolerance to liquid diet curr ently. No nausea, vomiting today. On exam patient is well-built and nourished, no apparent distress, normocephalic atraumatic, EOMI, normal breath sounds, clear to auscultation, S1-S2, no murmur, no pedal edema, abdomen soft, mild epigastric tenderness, normal bowel sounds, alert, awake, oriented, grossly no focal deficits. Patient is admitted for management of acute pancreatitis likely due to alcohol use. Continue IV fluids, Clear liquid diet as tolerated. Pain control. LFTs, lipid panel within normal limits. Appreciate GI input. Counseled on alcohol abstinence. I personally reviewed the record. Patient is interviewed and examined at bedside. Patient's care is coordinated with Leigh Donaldson PA-C. Please refer to the documentation above for details of patient's presentation and for discussion of other issues. Subjective Patient was seen and examined in room 354 in follow-up acute pancreatitis. Was advanced to clears but continues to have epigastric abdominal pain that is improved relieved with analgesia. Took two bites of breakfast and stopped due to discomfort. No nausea or vomiting. Passing flatus, no BM. Denies fever, chills, sweats, lightheadedness, dizziness, chest pain, shortness breath. Review of Systems Review of Systems: At least ten systems reviewed and negative except as noted in the HPI. Physical Exam Physical Exam: Gen: WD/WN, NAD, sitting up in bed, A&Ox3, obese HEENT: Normocephalic, atraumatic, conjunctivae moist, sclerae anicteric, mucous membranes moist Lung: Clear to Auscultation bilaterally, no wheezes/rales/rhonchi Heart: Regular rate, regular rhythm, no murmurs, rubs, or gallops Abdomen: Soft, epigastric TTP, no guarding, +BS x 4 Extremities: no edema Skin: Warm, no rash Results & Data Results & Data Vital Signs (Past 12 Hours) Vital Signs Temp Pulse Resp BP Pulse Ox O2 Del Method 12/10/22 15:15 36.9 C 71 18 122/75 98 Room Air 12/10/22 07:58 36.9 C 78 18 123/71 98 Room Air Laboratory Results Short CBC 12/10/22 Range/Units 07:25 WBC 10.30 (4.8-10.8) K/ul Hgb 14.5 (14.0-18.0) g/dl Hct 41.3 L (42.0-52.0) % Plt Count 242 (130-400) K/uL BMP 12/10/22 07:25 Sodium 138 Potassium 4.0 Chloride 103 Carbon Dioxide 31 BUN 7 Creatinine 0.82 Glucose 93 Calcium 8.7 Diagnostic Findings Abdomen/Pelvis CT 12/08/22 10:07 CT abd pelvis IV con only CLINICAL HISTORY: abd pain TECHNIQUE: Helical axial images of the abdomen and pelvis were obtained and displayed. Automated dose lowering techniques and/or adjustment according to patient size were utilized for this exam. This exam was performed with intravenous contrast. CT DOSE: 1594.48 mGy.cm COMPARISON: Comparison is made to CT abdomen pelvis 04/24/2020 FINDINGS: Lower chest: No acute abnormality. Liver: Unremarkable. No focal lesions are seen. Gallbladder and biliary tree: No calcified gallstones. Normal caliber wall. No intra- or extrahepatic biliary ductal dilation. Pancreas: Unremarkable, no focal lesions. Spleen: Unremarkable. Adrenals: Unremarkable. Kidneys and ureters: Unremarkable. Bladder: Limited evaluation due to underdistention. Reproductive organs: Unremarkable. Bowel: Unremarkable. Lymph nodes Retroperitoneal: Unremarkable. Pelvic: Unremarkable. Mesenteric: Unremarkable. Peritoneum: Normal. Vessels: Unremarkable. Abdominal wall: Left fat containing inguinal hernia. Bones: Degenerative changes in the visualized spine. IMPRESSION: No acute abnormalities. ACT 112: Negative or not required by law. Electronically signed by: Antonio Harley M.D. 12/08/2022 1:25 PM (2) Abdominal pain Abdominal location: unspecified location Qualified Code(s): R10.9 - Unspecified abdominal pain
[2022-12-10] MEDS: ACETAMINOPHEN 325 MG TAB PO PRN ×2 (18:20→22:40)
[2022-12-10] MEDS ORDERED: POLYETHYLENE (MIRALAX) 17 GM PACK PO PRN (21:02)
[2022-12-10] MEDS: ENOXAPARIN INJ 40 MG/0.4 ML SYR SQ SCH (22:40)
[2022-12-11] MEDS: LACTATED RINGER'S 1,000 ML IV SCH (04:54)
[2022-12-11 06:14] LABS: Hematocrit (blood only) 40.1 % (42.0-52.0); Hemoglobin 14.4 g/dl (14.0-18.0); Mean Corpuscular Hemoglobin 32.3 pg (25.0-34.0); Mean Corpuscular Hgb Conc 35.9 g/dL (32.0-36.0); Mean Corpuscular Volume 89.9 fL (80.0-100.0); Mean Platelet Volume 10.7 fL (9.4-12.4); Platelet Count 232 K/uL (130-400); RDW Standard Deviation 39.7 fL (36.4-46.3); Red Blood Count 4.46 M/uL (4.70-6.10); White Blood Count 7.96 K/ul (4.8-10.8)
[2022-12-11 06:29] LABS: BUN Creatinine Ratio 9.3 (10-20); Calcium 8.7 mg/dl (8.6-10.3); Creatinine Clr Calc Pharmacy 164.2 ml/min; Est GFR (Non-African American) 114.7 ml/min; Potassium 3.8 mmol/L (3.5-5.1)
[2022-12-11] MEDS: PANTOprazole 40 MG TAB PO SCH (09:00)
[2022-12-11] MEDS: ACETAMINOPHEN 325 MG TAB PO PRN (09:00)
--- NOTE | 2022-12-11 14:48 | Discharge Summary ---
Discharge Summary Date of Service December 11, 2022 Notes For Next Care Provider Recurrent pancreatitis, recommend abstaining from alcohol, decreasing caffeine intake. [facility] Medication Changes From Visit Tylenol as needed for pain, trial of protonix x 1 month Admission HPI Per Admitting Provider This is a 42-year-old male who is otherwise healthy who presents to ED secondary to abdominal pain x3 days. is at bedside. Pain is located in the epigastrium he describes it as a, "deep," pain that does not radiate. Pain is constant and is progressively gotten worse over the last 3 days. He denies any associated nausea or vomiting. He states his symptoms initially started out where it feels like, "I ate too much and feels really full." He then states it feels like he is bloated and then turned into a, "deep ache." He states he has been dealing with this since 2006 and will rewrites that every couple years. He has history of pancreatitis in the past requiring hospitalization. He also admits to having endoscopy in 2014 as well as again in 2020. The most recent one was done with [facility]. This was unremarkable. He states [facility] told him if this occurs again he may need to consider getting his gallbladder out. He denies any fever, chills, sweats, lightheadedness, dizziness, chest pain, shortness of breath, hemoptysis, hematemesis, diarrhea, constipation, melena or hematochezia. His bowel habits have been normal. He has never had a colonoscopy. His last bowel movement was this morning. His appetite is otherwise been normal and he has been eating and drinking as normal. He states he follows a relatively unhealthy diet where he has a diet high in fatty foods. With that being said he is really unable to pinpoint anything that flares his symptoms. He does drink alcohol but only on an occasional basis, maybe 1-2 drinks a week. He was a previous smoker 14 years ago. He does smoke medical marijuana nightly, last use last evening. In ED patient was found to have a mildly elevated lipase level and a completely unremarkable CT scan of abdomen pelvis. He otherwise remained afebrile and vital signs were within normal limits except mildly elevated blood pressure. He did receive IV medications for pain in ED and currently pain is a 2 out of 10. at bedside also elicits hx. Admission Exam Per Admitting Provider Constitutional: WD/WN, vitals as above, NAD, sitting up in bed, pleasant, conversing easily Head: Normocephalic, Atraumatic Eyes: PERRL, conjunctivae normal, anicteric sclerae ENMT: external ear and nose normal, oropharynx normal Neck: trachea midline, no thyromegaly normal visual inspection Respiratory: normal respiratory effort, lungs clear to auscultation, no wheeze, rales, rhonchi. Normal insp/exp effort, no accessory muscle use Cardiovascular: RRR, no murmur, no edema Vessels: no JVD or carotid bruit Chest: normal inspection of chest Abdomen: normal bowel sounds, soft, nontender, no hepatosplenomegaly Musculoskeletal: no cyanosis or clubbing, extremities motor strength 5/5 Skin: no rashes, warm and dry normal turgor Neurologic: PERRL, EOMI, accommodation nl, no face palsy, no dysarthria CN's II-XI intact bilaterally and moves all extremities Psychiatric: A+Ox3, euthymic affect Lymphatic: no cervical or axillary lymphadenopathy : deferred Principal Dx & Hospital Course #1 = Principal Diagnosis (1) Pancreatitis: (2) Abdominal pain: (3) Obesity (BMI 35.0-39.9 without comorbidity): Plan This is a 42-year-old male who is otherwise healthy who presents to ED secondary to abdominal pain x3 days and was found to have recurrent pancreatitis. CT abdomen pelvis without any acute abnormalities. GI evaluated and patient advance diet without issue. Placed on daily pantoprazole. Encouraged to abstain from alcohol (even though low consumption at baseline), continue with low-fat diet and abstain from Monster energy drinks, of which she consumes 2-3 a day. Patient with gallbladder dysfunction despite no evidence of cholelithiasis. GI service [facility] for evaluation of possible cholecystectomy. Pain is controlled with Tylenol at time of discharge home. Discharge Exam Gen: WD/WN, NAD, sitting up in bed, A&Ox3, obese HEENT: Normocephalic, atraumatic, conjunctivae moist, sclerae anicteric, mucous membranes moist Lung: Clear to Auscultation bilaterally, no wheezes/rales/rhonchi Heart: Regular rate, regular rhythm, no murmurs, rubs, or gallops Abdomen: Soft, epigastric TTP, no guarding, +BS x 4 Extremities: no edema Skin: Warm, no rash Updated Medication List Medication Instructions Recorded Confirmed Type acetaminophen 300 mg-codeine 30 mg 1 tab PO BID PRN Pain 12/08/22 12/08/22 History tablet fluticasone 100 mcg-salmeterol 50 1 inh inhalation BID 12/08/22 12/08/22 History mcg/dose blistr powdr for inhalation (Wixela Inhub) pantoprazole 40 mg tablet,delayed 40 mg PO DAILY #30 tabs 12/11/22 Rx release Hospital Stay Data Consultations 12/08/22 13:46 ED Decision to Admit Stat 12/08/22 15:02 Consult Gastroenterology Routine Diagnostic Imagining Performed 12/08/22 10:07 CT abd pelvis IV con only Stat Pending Results Patient Have Any Pending Studies at Discharge: No Discharge Instructions Given to Patient (Per Discharging Provider) MEDICATION CHANGES: Tylenol as needed for pain Continue daily Protonix x 1 month and re-evaluate SUMMARY OF TEST RESULTS: You were admitted to hospital for pancreatitis. CT abd/pelvis without acute abnormality. Symptoms improved, advanced diet to low fat without issue. Continue daily Protonix per GI service PENDING TEST RESULTS: None RECOMMENDATIONS FOR FOLLOW-UP: Follow up with PCP as scheduled. Encourage abstaining from alcohol, continue low fat diet and decreasing caffeine intake GI [facility] to evaluation for cholecystectomy OTHER INSTRUCTIONS: Seek medical attention if you have: * temperature above 101 * chest pain or trouble breathing * abdominal pain, nausea, vomiting * diarrhea, dark stools or bloody stools * any unanswered questions or concerns Call 911 if symptoms are severe. Please take good care of yourself. Call if you have any questions or problems. You can reach a [facility] hospitalist on duty at [facility] 24 hours a day by calling [phone]. Total Time Total Time Spent Total Time Spent (In Minutes): 40 Supervising Physician Co-Signing Physician Notes Patient is seen and examined at bedside. States feeling well today. Abdominal pain resolved. Tolerating regular diet. Offers no other complaints. On exam patient is well-built and nourished, no apparent distress, normocephalic atraumatic, EOMI, normal breath sounds, clear to auscultation, S1-S2, no murmur, no pedal edema, abdomen soft, nontender , normal bowel sounds, alert, awake, oriented, grossly no focal deficits. Patient is admitted for management of acute pancreatitis likely due to alcohol use. IV fluids discontinued. Tolerated regular diet. Clinically improved. LFTs, lipid panel within normal limits. Appreciate GI input. Counseled on alcohol abstinence. Advised to follow-up with GI, surgery as outpatient. I personally reviewed the record. Patient is interviewed and examined at bedside. Patient's care is coordinated with Leigh Donaldson PA-C. Please refer to the documentation above for details of patient's presentation and for discussion of other issues.
== END 2022-12-11 16:06 | disposition home or self-care (01) | DRG 440 ==
LOC: ED 09:50 → SUATTDRO 14:04 → 3W 14:04